=== PATIENT | female | born 1985 | race Caucasian/White ===

== ENCOUNTER 2023-04-02 16:40 | Emergency (ER) | payer MEDICAID ==
[~2023-04-02] VITALS: Ht 157.5 cm; Wt 56.0 kg
[~2023-04-02 16:40] MED LIST: NO HOME MEDS
[2023-04-02 16:50] VITALS: BP 102/71
== END 2023-04-02 18:17 | disposition left against medical advice (07) ==
LOC: ER 16:40
DX: L08.9 Local infection of the skin and subcutaneous tissue, unspecified (principal); Z53.21 Procedure and treatment not carried out due to patient leaving prior to being seen by health care provider
CPT/HCPCS: 99281